=== PATIENT | female | born 1955 | race Caucasian/White ===

== ENCOUNTER 2018-09-13 15:20 | Emergency (ER) | payer OTHER, MEDICAID ==
[~2018-09-13] VITALS: Ht 160 cm; Wt 104.3 kg
[2018-09-13 15:20] VITALS: BP_SYST 137
[2018-09-13] MEDS ORDERED: CLINDAMYCIN 600 mg/50mL D5W 50 ML IV ONE (15:30)
[2018-09-13] MEDS ORDERED: NACL 0.9% 1,000 ML IV ONE (15:30)
[2018-09-13 16:13] LABS: BASOPHILS % (AUTO) 0.4 % (0.0-2.0); EOSINOPHILS # (AUTO) 0.6 K/uL (0.0-0.4); EOSINOPHILS % (AUTO) 4.4 % (0.0-4.0); HEMATOCRIT 40.3 % (36-48); HEMOGLOBIN 13.4 g/dL (12.0-16.0); LYMPHOCYTES # (AUTO) 2.8 K/uL (1.0-5.5); LYMPHOCYTES % (AUTO) 21.3 % (20.5-51.5); MEAN CORPUSCULAR HEMOGLOBIN 32 pg (27-31); MEAN CORPUSCULAR HGB CONC 33 % (32-36); MEAN CORPUSCULAR VOLUME 96 fL (79.0-98.0); MONOCYTES # (AUTO) 1.2 K/uL (0.0-1.0); NEUTROPHILS # (AUTO) 8.6 K/uL (1.8-7.7); NEUTROPHILS % (AUTO) 64.9 % (40.0-70.0); PLATELET COUNT (AUTO) 210 K/uL (130-430); RED BLOOD CELL COUNT(AUTO) 4.19 MIL/uL (4.2-6.2); WHITE BLOOD COUNT (AUTO) 13.3 K/uL (4.8-10.8)
[2018-09-13 16:21] LABS: CALCIUM 8.9 mg/dL (8.4-11.0); CREATININE 0.59 mg/dL (0.55-1.30); POTASSIUM 4.1 mmol/L (3.5-5.1)
[2018-09-13 16:36] LABS: ALBUMIN 2.9 g/dL (3.4-4.8); TOTAL BILIRUBIN 0.3 mg/dL (0.0-1.0)
[2018-09-13] MEDS ORDERED: LIDOCAINE 1%, 20 ML MDV 20 ML ONE (16:56)
[2018-09-13 18:26] VITALS: BP_SYST 107
== END 2018-09-13 18:36 | disposition home or self-care (01) ==
LOC: SED 15:20
DX: L02.214 Cutaneous abscess of groin (principal); I10 Essential (primary) hypertension; K21.9 Gastro-esophageal reflux disease without esophagitis; G30.9 Alzheimer's disease, unspecified; Z88.5 Allergy status to narcotic agent
CPT/HCPCS: 10060; 36415; 80053; 83605; 85025; 87040; 96365; 99283; J2001; J3490; J7030